=== PATIENT | female | born 1970 | race Caucasian/White ===

== ENCOUNTER → 2020-02-20 15:20 | Outpatient (CLI) | payer OTHER, SELFPAY ==
--- NOTE | 2020-02-20 15:29 | EKG12_ITS ---
Test Reason : Blood Pressure : / mmHG Vent. Rate : 053 BPM Atrial Rate : 053 BPM P-R Int : 142 ms QRS Dur : 072 ms QT Int : 420 ms P-R-T Axes : 045 025 018 degrees QTc Int : 394 ms Sinus bradycardia Otherwise normal ECG Confirmed by YAMILE CAMPOVERDE, CIRO ([id number]), movie editor NAV MUNIZ ([id number]) on 02/21/2020 10:09:53 AM Referred By: HUSSAIN CHAKRABORTY Confirmed By:CIRO OVALLE MD
== END ==
DX: Z01.818 Encounter for other preprocedural examination (principal)
CPT/HCPCS: 93005

== ENCOUNTER → 2020-02-29 15:39 | Outpatient (CLI) | payer OTHER, SELFPAY ==
[2014-07-13 18:43] VITALS: BMI 32.5
--- NOTE | 2020-02-29 15:53 | EKG12_ITS ---
Test Reason : PRE OP Blood Pressure : / mmHG Vent. Rate : 078 BPM Atrial Rate : 078 BPM P-R Int : 134 ms QRS Dur : 070 ms QT Int : 374 ms P-R-T Axes : 055 022 024 degrees QTc Int : 426 ms Normal sinus rhythm Normal ECG Confirmed by ROSEMARIE CAPUTO ([id number]), department editor MARTHA CHI ([id number] on 03/05/2020 12:01:54 PM Referred By: SAIGE WEBB Confirmed By:ROSEMARIE CAPUTO
== END ==
DX: Z01.810 Encounter for preprocedural cardiovascular examination (principal)
CPT/HCPCS: 93005

== ENCOUNTER 2022-01-16 20:06 | Emergency (ER) | payer OTHER, SELFPAY ==
[2022-01-16 20:08] VITALS: BP 148/98; PULSE 100; RESP 16; TEMP 37.2; O2SAT 99; BMI 29.0
--- NOTE | 2022-01-16 20:25 | EDS_ITS ---
HPI History of Present Illness Chief Complaint: Cellulitis Informant: patient Onset/Context/Timing Onset: Days (4 days) Context: Gradual Onset Current Severity: Moderate Maximum Severity: Moderate Narrative Narrative: Patient presents secondary to cellulitis to the right groin area. She first noted symptoms 3 days ago. She has had fever up to 101 at home. She is a type II diabetic. She states on a normal day her blood sugars will run around 150. She is been running around 300. She was sent over from the urgent care for evaluation. [facility] Medical History Depression Diabetes mellitus, type II Hypertension SLE Home Medications atorvastatin 10 mg PO DAILY 07/13/14 [History Last Taken 07/13/14] gabapentin 300 mg PO BIDCM 07/13/14 [History Last Taken 07/13/14] hydroxychloroquine 200 mg PO BIDCM 07/13/14 [History Last Taken 07/13/14] lidocaine 35 g TOPICAL QHS 07/13/14 [History Last Taken 07/12/14] sertraline 100 mg PO BID 07/13/14 [History Last Taken 07/13/14] ciprofloxacin HCl 500 mg PO BID 7 Days tablet 07/15/14 [Rx Last Taken Unknown] metronidazole 500 mg PO Q8H #7 days 07/15/14 [Rx Last Taken Unknown] oxycodone 10 mg PO Q4H PRN PRN #30 tablet 07/15/14 [Rx Last Taken Unknown] cephalexin 500 mg PO Q6 #40 cap 01/16/22 [Rx Last Taken Unknown] sulfamethoxazole-trimethoprim [Bactrim DS] 1 tab PO BID #20 tab 01/16/22 [Rx Last Taken Unknown] Allergy/AdvReac Type Severity Reaction Status Date / Time No Known Allergies Allergy Verified 01/16/22 20:10 Social History Smoking Status: Never smoker ROS ROS ED Constitutional Constitutional ED: Reports fever(s); Denies chills Eyes Eyes: Denies change in vision ENT ENT ED: Denies sore throat Cardiovascular Cardiovascular: Denies chest pain Respiratory/Chest Respiratory/Chest: Denies cough or dyspnea Gastrointestinal Gastrointestinal: Denies abdominal pain, diarrhea, nausea or vomiting Genitourinary Genitourinary ED: Denies dysuria Musculoskeletal Musculoskeletal: Denies back pain Integumentary Reports rash Neurologic Neurologic: Denies headache(s) or weakness Allergic/Immunologic Allergic/Immunologic ED: Denies urticaria EXAM Physical Exam Const Vital Signs: 01/16/22 20:08 Temperature 99.0 F Temperature Source Temporal Pulse Rate 100 Respiratory Rate 16 Blood Pressure 148/98 H Blood Pressure Mean 114 Pulse Ox 99 Oxygen Delivery Method Room Air Positive well nourished and well developed General Appearance ED: well developed HEENT Reports moist mucous membranes Eyes PERRL and EOMs intact bilaterally Neck supple Chest Wall inspection of chest normal and palpation of chest normal Resp normal respiratory effort and clear to auscultation bilaterally Cardio regular rate and regular rhythm GI Palpation: soft Narrative: 12 x 18 cm area of cellulitis over the right anterior groin. No open wounds. No palpable abscess. Extremity normal to inspection Neuro oriented x3 Sensorium / Orientation: alert Skin Skin Narrative: Cellulitis as noted above. MDM MDM MDM Narrative Medical decision making narrative: Lab work obtained. Patient given a dose of IV Lab Data Attestation: I reviewed the patient's lab results. Labs: Laboratory Results - last 24 hr 01/16/22 01/16/22 20:30 20:30 WBC 9.4 RBC 4.61 Hgb 10.1 L Hct 34.2 L MCV 74.2 L MCH 21.9 L MCHC 29.5 L RDW Std Deviation 42.7 RDW Coeff of Heaven 16.2 H Plt Count 254 MPV 9.7 Immature Gran % (Auto) 0.100 Neut % (Auto) 71.1 H Lymph % (Auto) 18.7 L Cloud % (Auto) 7.6 Eos % (Auto) 2.1 Baso % (Auto) 0.4 Absolute Neuts (auto) 6.7 Absolute Lymphs (auto) 1.76 Nucleated RBC % 0 Sodium 139 Potassium 3.3 L Chloride 108 H Carbon Dioxide 26.0 Anion Gap 5 BUN 13 Creatinine 0.83 Estim Creat Clear Calc 77.10 Est GFR (MDRD) Af Amer 93 Est GFR (MDRD) Non-Af 77 BUN/Creatinine Ratio 15.6 Glucose 102 Calcium 8.9 Treatment and Re-Evaluation Narrative: CBC reveals normal white count. No significant left shift. Blood sugar is 102. Blood cultures were obtained. Patient's area of erythema will be outlined with surgical marker. She will be treated with Bactrim and Keflex at home. Return instructions provided. Discharge Plan Triage Chief Complaint: Cellulitis ED Provider: Magda Kaplan Dx/Rx/DC Orders Clinical Impression: Cellulitis Instructions: ED Cellulitis Prescriptions: New sulfamethoxazole-trimethoprim [Bactrim DS] 800-160 mg tablet 1 tab PO BID Qty: 20 RF: 0 cephalexin 500 mg capsule 500 mg PO Q6 Qty: 40 RF: 0 No Action atorvastatin 10 MG tablet 10 mg PO DAILY RF: 0 sertraline 100 MG tablet 100 mg PO BID RF: 0 gabapentin 300 MG capsule 300 mg PO BIDCM RF: 0 hydroxychloroquine 200 MG tablet 200 mg PO BIDCM RF: 0 lidocaine 35 GM ointment 35 g topical QHS RF: 0 oxycodone 5 MG tablet 10 mg PO Q4H PRN PRN (Reason: Moderate Pain (pain scale 4-5)) Qty: 30 RF: 0 metronidazole 500 MG tablet 500 mg PO Q8H Qty: 7 RF: 0 ciprofloxacin HCl 500 MG tablet 500 mg PO BID 7 Days RF: 0 Activity Restrictions/Additional Instructions: Follow-up with your primary care physician in 1 to 2 weeks. Return to the ER for worsened erythema, continued fevers, vomiting, inability to tolerate antibiotics. Disposition Disposition: Home, Self Care
[2022-01-16] MEDS: Ondansetron 4 MG/2 ML Vial IV (20:40)
[2022-01-16] MEDS: Morphine 4 MG/ML Syringe IV (20:40)
[2022-01-16] MEDS: 0.9% Normal Saline 1,000 ML 150 ML IV (20:41)
[2022-01-16 20:44] LABS: Absolute Lymphocyte Count 1.76 X10^3/uL (0.83-4.51); Absolute Neutrophil Count 6.7 X10^3/uL (2.0-7.7); Basophil# 0.04 X10^3/uL; Basophil% 0.4 % (0-1); Eosinophils% 2.1 % (0-5); Hematocrit 34.2 % (37-47); Hemoglobin 10.1 g/dL (12.0-15.0); Lymphocyte # 1.76 X10^3/ul (0.83-4.51); Lymphocyte % 18.7 % (19-41); Mean Corp Hgb Conc 29.5 g/dL (32-36); Mean Corpuscular Hgb 21.9 pg (27.0-32.0); Mean Corpuscular Volume 74.2 fL (81-99); Mean Platelet Vol. 9.7 fl (6.2-12.0); Monocyte# 0.72 X10^3/uL; Monocyte% 7.6 % (0-10); NRBC Flagged by Analyzer 0 % (0-5); Neutrophil % 71.1 % (47-70); Platelet Count 254 K/mm3 (150-450); RBC Distribution Width CV 16.2 % (11.6-14.6); RBC Distribution Width SD 42.7 fl (35.1-43.9); Red Blood Count 4.61 M/mm3 (4.2-5.4); White Blood Count 9.4 K/mm3 (4.4-11.0)
[2022-01-16 20:55] LABS: Anion Gap 5 (5-15); BUN 13 mg/dL (7-18); BUN/Creat Ratio 15.6 RATIO (10-20); Calcium,Total 8.9 mg/dL (8.5-10.1); Chloride 108 mmol/L (98-107); Creatinine, Serum 0.83 mg/dL (0.55-1.02); EST Glomerular Filtration Rate 77 mL/min (>60); Est Glom Filt Rate - Afr Amer 93 mL/min (>60); Glucose 102 mg/dL (74-106); Potassium 3.3 mmol/L (3.5-5.1); Sodium Level 139 mmol/L (136-145)
[2022-01-16 21:46] VITALS: PULSE 89; RESP 20; O2SAT 97
[2022-01-16] MEDS: Acetaminophen 500 MG Tablet 1000 MG PO (22:44)
--- NOTE | 2022-01-16 22:48 | ED.RN ---
DR. YANG REQUESTED PATIENTS REDNESS ON GROIN BE OUTLINED PRIOR TO DISCHARGE.
== END 2022-01-16 22:54 | disposition home or self-care (01) ==
PROVIDERS: Emergency Provider Emergency Medicine; Visit Provider Emergency Medicine
DX: L03.314 Cellulitis of groin (principal); E11.9 Type 2 diabetes mellitus without complications; I10 Essential (primary) hypertension; Z79.899 Other long term (current) drug therapy
CPT/HCPCS: 80048; 85025; 87040; 96365; 96366; 96375; 99283; J7030; J7050; A4216; J2405

== ENCOUNTER 2023-03-05 20:11 | Emergency (ER) | payer OTHER, SELFPAY ==
[2023-03-05 20:12] VITALS: BP 146/91; PULSE 93; RESP 16; TEMP 37.4; O2SAT 98; BMI 28.5
--- NOTE | 2023-03-05 20:43 | EKG12_ITS ---
Test Reason : DYSRHYTHMIA Blood Pressure : / mmHG Vent. Rate : 086 BPM Atrial Rate : 086 BPM P-R Int : 156 ms QRS Dur : 076 ms QT Int : 354 ms P-R-T Axes : 057 032 029 degrees QTc Int : 423 ms Normal sinus rhythm Normal ECG Confirmed by YAMILE CAMPOVERDE, CIRO ([id number]), purchasing expeditor NAV MUNIZ ([id number]) on 03/06/2023 9:24:40 AM Referred By: Confirmed By:CIRO OVALLE MD
--- NOTE | 2023-03-05 20:46 | EX.ED.DYSGE1 ---
HPI History of Present Illness Chief Complaint: Cellulitis Detail of Chief Complaint: Cellulitis lateral side left breast Informant: patient Onset/Context/Timing Onset: Days (As noted small red spot on Thursday. Patient is taken pictures and revealed to me the progression) Context: Sudden Onset Timing: Continuous Quality: Pain in area of cellulitis Location: Lateral upper quadrant left breast Current Severity: Mild Maximum Severity: Moderate Worsened by: Touch and movement Relieved by: Nothing Associated Symptoms Associated Symptoms: Documented temperature 102 and shaking chills Narrative Narrative: Patient is a 52-year-old woman with history of antidepressant and Plaquenil. We will need to determine why she is on Plaquenil. She states she feels terrible. She had a small red dot noted lateral aspect the left breast on Thursday. It has gotten worse. The area of erythema is now 4 x 4 and square like in shape. There is 1 palpable axillary node. She complains of pain with movement of her arm. She denies headache, visual, ocular auditory symptoms. Denies rhinorrhea, congestion, postnasal drainage sore throat. She denies cough or shortness of breath. She denies chest pain. She denies vomiting or diarrhea. She denies abdominal pain. She does complain of aches. Prior similar symptoms: Yes Recent Illness/Hospitalization: No PFSH [facility] Medical History Depression Diabetes mellitus, type II Hypertension SLE Home Medications atorvastatin 10 mg tablet 10 mg PO DAILY 07/13/14 [History Last Taken 07/13/14] gabapentin 300 mg capsule 300 mg PO BIDCM 07/13/14 [History Last Taken 07/13/14] hydroxychloroquine 200 mg tablet 200 mg PO BIDCM 07/13/14 [History Last Taken 07/13/14] lidocaine 5 % topical ointment 35 g topical QHS 07/13/14 [History Last Taken 07/12/14] sertraline 100 mg tablet 100 mg PO BID 07/13/14 [History Last Taken 07/13/14] ciprofloxacin HCl 500 mg tablet 500 mg PO BID 7 days 07/15/14 [Rx Last Taken Unknown] metronidazole 500 mg tablet 500 mg PO Q8H ##7 07/15/14 [Rx Last Taken Unknown] oxycodone 5 mg tablet 10 mg (2 x 5 mg) PO Q4H PRN PRN Moderate Pain (pain scale 4-5) ##30 07/15/14 [Rx Last Taken Unknown] cephalexin 500 mg capsule 500 mg PO Q6 #40 caps 01/16/22 [Rx Last Taken Unknown] sulfamethoxazole 800 mg-trimethoprim 160 mg tablet (Bactrim DS) 1 tab PO BID #20 tabs 01/16/22 [Rx Last Taken Unknown] tramadol 100 mg tablet 100 mg PO TID PRN pain #6 tabs 01/16/22 [Rx Last Taken Unknown] Allergy/AdvReac Type Severity Reaction Status Date / Time No Known Allergies Allergy Verified 03/05/23 20:12 Social History (Updated 03/05/23 @ 20:[address] Ari Gloria MD) household members: spouse Smoking Status: Never smoker substance use type: does not use ROS ROS ED Constitutional Constitutional ED: Reports chills and fever(s); Denies subjective, sweats or weight loss Eyes Eyes: Denies blurry vision, change in vision or diplopia ENT ENT ED: Denies ear pain, rhinorrhea or sore throat Cardiovascular Cardiovascular: Denies chest pain or palpitations Respiratory/Chest Respiratory/Chest: Denies cough, dyspnea or dyspnea on exertion Gastrointestinal Gastrointestinal: Reports nausea; Denies abdominal pain, constipation or vomiting Genitourinary Genitourinary ED: Reports urinary frequency; Denies dysuria or hematuria Musculoskeletal Musculoskeletal: Reports arthralgias and myalgias; Denies back pain or neck pain Integumentary Reports rash; Denies abscess or Abrasions Neurologic Neurologic: Reports headache(s) and weakness; Denies paresthesias Endocrine Endocrinology: Denies cold intolerance or heat intolerance Hematologic/Lymphatic Hematologic/Lymphatic: Reports systems reviewed and no addt'l complaints, except as documented EXAM Physical Exam Const Vital Signs: 03/05/23 20:12 Temperature 99.3 F H Temperature Source Temporal Pulse Rate 93 Respiratory Rate 16 Blood Pressure 146/91 H Blood Pressure Mean 109 Pulse Ox 98 Positive well nourished and well developed Constitutional Narrative: Patient does not appear well. She does not appear toxic. General Appearance ED: well developed, NAD and pallor; Negative for cyanotic or diaphoretic HEENT Reports dry mucous membranes HEENT Narrative: Head is atraumatic normocephalic. Ears normal. Nares patent. Posterior appearance is normal. Mouth ED: Yes dry mucous membranes Mouth: dry mucous membranes Eyes PERRL and EOMs intact bilaterally General Eye ED: Negative for pale conjunctiva or scleral icterus Neck no lymphadenopathy, supple and no JVD Chest Wall palpation of chest normal; Negative for inspection of chest normal Chest Narrative: 4 x 4 cm area of erythema warmth. Patient has pain out of proportion. No crepitus subcutaneous air. No fluctuance. There is 1 palpable axillary node noted on the left. There is no lymphangitis. There is no dimpling of the breast or nipple. Resp normal respiratory effort and clear to auscultation bilaterally Cardio regular rate, regular rhythm, S1 normal heart sound, S2 normal heart sound and no murmurs Back/Spine no CVA tenderness Extremity normal to inspection General Extremety ED: Negative for edema or tenderness General Extremity: Negative for edema Neuro oriented x3, CN's II-XII intact bilaterally and no sensory deficits noted Sensorium / Orientation: alert Psych Mood & Affect: depressed Skin no wounds and skin turgor normal Skin Narrative: Area of cellulitis lateral left breast upper quadrant. General Skin Exam: pallor; Negative for jaundice MDM MDM MDM Narrative Medical decision making narrative: Patient on immunosuppressive medication for SLE. Since patient appears ill and has reported document temperature 102 at home will initiate sepsis order set. 3.0 g of Unasyn was ordered. Patient requested pain medicine. She received 4 mg of Zofran for nausea and 4 mg of morphine for pain. Prior records reviewed. Patient's lumpectomy was done at [facility]. The lumpectomy was not done locally. History & Record Review Additional record(s) reviewed:: Prior inpatient record (For depression), Prior outpatient record, Prior ED visit (Cellulitis January 2022) and Prior labs Discharge Plan Triage Chief Complaint: Cellulitis ED Provider: Ari Gloria Dx/Rx/DC Orders Prescriptions: No Action atorvastatin 10 MG tablet 10 mg PO DAILY Patient Comments: cholesterol sertraline 100 MG tablet 100 mg PO BID Patient Comments: depression gabapentin 300 MG capsule 300 mg PO BIDCM Patient Comments: nerve pain hydroxychloroquine 200 MG tablet 200 mg PO BIDCM lidocaine 35 GM ointment 35 g topical QHS Patient Comments: back pain oxycodone 5 MG tablet 10 mg PO Q4H PRN PRN (Reason: Moderate Pain (pain scale 4-5)) Qty: 30 0RF metronidazole 500 MG tablet 500 mg PO Q8H Qty: 7 0RF ciprofloxacin HCl 500 MG tablet 500 mg PO BID 7 Days 0RF sulfamethoxazole-trimethoprim [Bactrim DS] 800-160 mg tablet 1 tab PO BID Qty: 20 0RF cephalexin 500 mg capsule 500 mg PO Q6 Qty: 40 0RF tramadol 100 mg tablet 100 mg PO TID PRN (Reason: pain) Qty: 6 0RF Primary Care Provider: Mame Sharma NURSING HOME SOCIAL WORKER Referrals: Mame Sharma NURSING HOME SOCIAL WORKER, NURSING HOME SOCIAL WORKER-C [Primary Care Provider] -
[2023-03-05] MEDS: Ondansetron 4 MG/2 ML Vial IV (21:34)
[2023-03-05] MEDS: Morphine 4 MG/ML Syringe IV (21:34)
[2023-03-05 21:45] VITALS: BP 131/86; PULSE 87; RESP 14; TEMP 37.1; O2SAT 94
[2023-03-05 22:04] LABS: Absolute Lymphocyte Count 1.58 X10^3/uL (0.83-4.51); Absolute Neutrophil Count 6.9 X10^3/uL (2.0-7.7); Basophil# 0.04 X10^3/uL; Basophil% 0.4 % (0-1); Eosinophil# 0.13 X10^3/uL; Eosinophils% 1.4 % (0-5); Hematocrit 36.8 % (37-47); Hemoglobin 10.9 g/dL (12.0-15.0); Lymphocyte # 1.58 X10^3/ul (0.83-4.51); Mean Corp Hgb Conc 29.6 g/dL (32-36); Mean Corpuscular Hgb 22.8 pg (27.0-32.0); Mean Platelet Vol. 9.7 fl (6.2-12.0); Monocyte# 0.66 X10^3/uL; Monocyte% 7.1 % (0-10); NRBC Flagged by Analyzer 0 % (0-5); Neutrophil # 6.86 X10^3/uL (2.7-7.7); Neutrophil % 73.9 % (47-70); Platelet Count 248 K/mm3 (150-450); RBC Distribution Width SD 41.7 fl (35.1-43.9); Red Blood Count 4.78 M/mm3 (4.2-5.4); White Blood Count 9.3 K/mm3 (4.4-11.0)
[2023-03-05 22:15] LABS: Partial Thromboplast Time 35.9 Seconds (24.1-36.2)
--- NOTE | 2023-03-05 22:24 | EDS_ITS ---
HPI History of Present Illness Chief Complaint: Cellulitis [facility] Medical History (Updated 03/05/23 @ 22:[address] Ari Gloria MD) Depression Diabetes mellitus, type II Hypertension Lupus SLE Home Medications atorvastatin 10 mg tablet 10 mg PO DAILY 07/13/14 [History Last Taken 07/13/14] gabapentin 300 mg capsule 300 mg PO BIDCM 07/13/14 [History Last Taken 07/13/14] hydroxychloroquine 200 mg tablet 200 mg PO BIDCM 07/13/14 [History Last Taken 07/13/14] lidocaine 5 % topical ointment 35 g topical QHS 07/13/14 [History Last Taken 07/12/14] sertraline 100 mg tablet 100 mg PO BID 07/13/14 [History Last Taken 07/13/14] ciprofloxacin HCl 500 mg tablet 500 mg PO BID 7 days 07/15/14 [Rx Last Taken Unknown] metronidazole 500 mg tablet 500 mg PO Q8H ##7 07/15/14 [Rx Last Taken Unknown] oxycodone 5 mg tablet 10 mg (2 x 5 mg) PO Q4H PRN PRN Moderate Pain (pain scale 4-5) ##30 07/15/14 [Rx Last Taken Unknown] cephalexin 500 mg capsule 500 mg PO Q6 #40 caps 01/16/22 [Rx Last Taken Unknown] sulfamethoxazole 800 mg-trimethoprim 160 mg tablet (Bactrim DS) 1 tab PO BID #20 tabs 01/16/22 [Rx Last Taken Unknown] tramadol 100 mg tablet 100 mg PO TID PRN pain #6 tabs 01/16/22 [Rx Last Taken Unknown] cephalexin 500 mg capsule 500 mg PO Q6 #28 CAPSULES 03/05/23 [Rx Last Taken Unknown] hydrocodone-acetaminophen 5-325mg 5mg-325mg 1 tab PO Q6H PRN PRN Pain 1 day #4 TABLETS 03/05/23 [Rx Last Taken Unknown] Allergy/AdvReac Type Severity Reaction Status Date / Time No Known Allergies Allergy Verified 03/05/23 20:12 Social History (Updated 03/05/23 @ 20:[address] Air Gloria MD) household members: spouse Smoking Status: Never smoker substance use type: does not use EXAM Physical Exam Const Vital Signs: 03/05/23 20:12 03/05/23 21:40 03/05/23 21:45 Temperature 99.3 F H 98.8 F Temperature Source Temporal Oral Pulse Rate 93 87 Respiratory Rate 16 14 Respiratory Pattern Normal Blood Pressure 146/91 H 131/86 H Blood Pressure Mean 109 101 Pulse Ox 98 94 Oxygen Delivery Method Room Air 03/05/23 21:45 Temperature Temperature Source Pulse Rate Respiratory Rate Respiratory Pattern Blood Pressure Blood Pressure Mean Pulse Ox 94 Oxygen Delivery Method Room Air MDM MDM Lab Data Attestation: I reviewed the patient's lab results. Lab results narrative: White count is normal. Coags normal. Since patient is not tachycardic tachypneic febrile and has no sirs criteria should be discharged home with prescription for cephalexin. She requested pain medicine. Labs: Laboratory Results - last 24 hr 03/05/23 21:25 WBC 9.3 RBC 4.78 Hgb 10.9 L Hct 36.8 L MCV 77.0 L MCH 22.8 L MCHC 29.6 L RDW Std Deviation 41.7 RDW Coeff of Heaven 15.0 H Plt Count 248 MPV 9.7 Immature Gran % (Auto) 0.200 Neut % (Auto) 73.9 H Lymph % (Auto) 17.0 L [place] % (Auto) 7.1 Eos % (Auto) 1.4 Baso % (Auto) 0.4 Absolute Neuts (auto) 6.9 Absolute Lymphs (auto) 1.58 Nucleated RBC % 0 APTT 35.9 Discharge Plan Triage Chief Complaint: Cellulitis ED Provider: Ari Gloria Dx/Rx/DC Orders Clinical Impression: Cellulitis of left breast Instructions: ED Cellulitis Prescriptions: New hydrocodone-acetaminophen [hydrocodone-acetaminophen] 5-325 mg tablet 1 tab PO Q6H PRN PRN (Reason: Pain) 1 Days Qty: 4 0RF cephalexin [cephalexin] 500 mg capsule 500 mg PO Q6 Qty: 28 0RF No Action atorvastatin 10 MG tablet 10 mg PO DAILY Patient Comments: cholesterol sertraline 100 MG tablet 100 mg PO BID Patient Comments: depression gabapentin 300 MG capsule 300 mg PO BIDCM Patient Comments: nerve pain hydroxychloroquine 200 MG tablet 200 mg PO BIDCM lidocaine 35 GM ointment 35 g topical QHS Patient Comments: back pain oxycodone 5 MG tablet 10 mg PO Q4H PRN PRN (Reason: Moderate Pain (pain scale 4-5)) Qty: 30 0RF metronidazole 500 MG tablet 500 mg PO Q8H Qty: 7 0RF ciprofloxacin HCl 500 MG tablet 500 mg PO BID 7 Days 0RF sulfamethoxazole-trimethoprim [Bactrim DS] 800-160 mg tablet 1 tab PO BID Qty: 20 0RF cephalexin 500 mg capsule 500 mg PO Q6 Qty: 40 0RF tramadol 100 mg tablet 100 mg PO TID PRN (Reason: pain) Qty: 6 0RF Primary Care Provider: Mame Sharma PROGRAM MANAGEMENT SPECIALIST Referrals: Mame Sharma PROGRAM MANAGEMENT SPECIALIST, PROGRAM MANAGEMENT SPECIALIST-C [Primary Care Provider] - 2 Days for wound check Disposition Disposition: Home, Self Care
[2023-03-05 22:29] LABS: ALB/GLOB Ratio 0.9 RATIO (0.9-2.4); AST(SGOT) 14 U/L (15-37); Alanine Aminotransfer ALT/SGPT 17 U/L (13-56); Albumin, Serum 3.1 g/dL (3.2-5.0); Alkaline Phosphatase 112 U/L (45-117); Anion Gap 7 (5-15); BUN 10 mg/dL (7-18); BUN/Creat Ratio 11.8 RATIO (10-20); Calcium,Total 8.7 mg/dL (8.5-10.1); Chloride 106 mmol/L (98-107); Creatinine, Serum 0.84 mg/dL (0.55-1.02); EST Glomerular Filtration Rate 75 mL/min (>60); Est Glom Filt Rate - Afr Amer 91 mL/min (>60); Estimated Creatinine Clearance 75.32 ml/min; Globulin 3.6 g/dL (2.2-4.2); Glucose 94 mg/dL (74-106); Potassium 3.2 mmol/L (3.5-5.1); Protein, Total 6.7 g/dL (6.4-8.2); Sodium Level 139 mmol/L (136-145)
== END 2023-03-05 22:41 | disposition home or self-care (01) ==
PROVIDERS: Emergency Provider Emergency Medicine; PCP Nurse Practitioner; Visit Provider Emergency Medicine
DX: N61.0 Mastitis without abscess (principal); M32.9 Systemic lupus erythematosus, unspecified; E11.9 Type 2 diabetes mellitus without complications; R11.0 Nausea; I10 Essential (primary) hypertension; R35.0 Frequency of micturition; R51.9 Headache, unspecified; Z79.899 Other long term (current) drug therapy
CPT/HCPCS: 80053; 85025; 85730; 87040; 93005; 96365; 96375; 99283; J0295; J2405